=== PATIENT | female | born 1955 | race Caucasian/White ===

== ENCOUNTER 2018-01-16 13:29 | Inpatient (IN) | payer OTHER, SELFPAY ==
[2018-01-16] MEDS ORDERED: Iopamidol 370 76% 100 ML VIAL ONE (13:36)
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
[2018-01-16 14:52] LABS: #Eosinphils 0.1 thou/uL (0.0-0.7); #Lymphocytes 2.1 thou/uL (1.20-3.40); #Monocytes 0.5 thou/uL (0.11-0.59); %Basophils 0.7 % (0.0-1.0); %Lymphocytes 31.6 % (21.0-51.0); %Neutrophils 59.7 % (42.0-75.0); Hemoglobin 14.9 g/dL (12.0-16.0); Mean Corpuscular HGB CONC 34.9 g/dL (32.0-36.0); Mean Corpuscular Hemoglobin 33.8 pg (27.0-31.0); Mean Corpuscular Volume 96.7 fl (81.0-99.0); Mean Platelet Volume 6.9 fL (7.4-10.4); Platelet Count 198 thou/uL (130-400); RBC Distribution Width 11.5 % (11.5-14.5); Red Blood Cell (RBC) Count 4.42 mill/uL (4.20-5.40); White Blood Cell (WBC) Count 6.7 thou/uL (4.8-10.8)
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
[2018-01-16 15:00] LABS: ALT (SGPT) 33 U/L (8-55); AST (SGOT) 42 U/L (5-34); Albumin 4.1 g/dL (3.4-4.8); Alcohol Less than 10 mg/dL (Less than 10); Alkaline Phosphatase 101 U/L (40-150); Anion Gap 11 mmol/L (10-20); BUN (Urea Nitrogen) 28 mg/dL (9.8-20.1); Bilirubin, Total 0.9 mg/dL (0.2-1.2); Calc. Creatinine Clearance 0 mL/min (70-130); Calcium 9.7 mg/dL (7.8-10.44); Carbon Dioxide 22 mmol/L (23-31); Chloride 110 mmol/L (98-107); Estimated GFR-MDRD 77; Globulin 2.5 g/dL (2.4-3.5); Glucose 135 mg/dL (80-115); Protein, Total 6.6 g/dL (6.0-8.3); Sodium 139 mmol/L (136-145)
[2018-01-16 15:03] LABS: CKMB 1.3 ng/mL (0-6.6); Troponin I Less than 0.010 ng/mL (< 0.028)
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
[2018-01-16] MEDS ORDERED: Ondansetron ODT 8 MG TAB ONE (15:21)
[2018-01-16] MEDS ORDERED: Morphine 4 MG/ML VIAL ONE (15:21)
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
[2018-01-16 17:00] LABS: Bilirubin Negative (Negative); Blood, Urine Negative (Negative); Clarity CLEAR (Clear); Glucose, Urine (Dipstick) Negative (Negative); Leukocyte Small (Negative); Nitrite Positive (Negative); Protein, Urine (Dipstick) Negative (Neg-Trace); Urobilinogen 0.2 mg/dL (0.2-1.0)
[2018-01-16 17:01] LABS: Bacteria/HPF 4+ HPF (None Seen); Hyaline Casts/LPF 0-3 HYALINE CAST LPF (0-3 Hyaline); RBC/HPF 0-3 HPF (0-3); Squamous Epithelial 0-3 HPF (0-3)
[2018-01-16 17:06] LABS: Specific Gravity, Urine 1.046 (1.002-1.036)
[2018-01-16 17:13] LABS: Renal Epithelial None Seen HPF (0-3); Transitional Epithelial NONE SEEN HPF (0-3)
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
[2018-01-16] MEDS ORDERED: Dextrose 50% Abboject 50 ML SYRINGE SLOW IVP PRN (18:30)
[2018-01-16] MEDS ORDERED: Ondansetron HCl/PF 4 MG/2 ML Vial IVP PRN (18:30)
[2018-01-16] MEDS ORDERED: Ondansetron ODT 4 MG TAB PO PRN (18:30)
[2018-01-16] MEDS ORDERED: Rib Fracture Protocol IV SCH (18:30)
[2018-01-16] MEDS ORDERED: Dextrose 5% in Water 1,000 ML IV PRN (18:30)
[2018-01-16] MEDS: Famotidine 20 MG TAB PO SCH (20:55)
[2018-01-16] MEDS: Morphine 4 MG/ML VIAL SLOW IVP PRN (20:55)
[2018-01-16] MEDS: Senokot S 8.6-50 MG TAB PO SCH (20:55)
[2018-01-16] MEDS: Acetaminophen 325 MG TAB PO SCH (22:46)
[2018-01-16] MEDS: Cyclobenzaprine 10 MG TAB PO PRN (22:47)
[2018-01-16] MEDS: Ketorolac Tromethamine 30 MG/ML VIAL IVP SCH (22:47)
[2018-01-16] MEDS: Sodium Chloride 0.9% 1,000 ML IV SCH (22:57)
[2018-01-16 23:40] VITALS: BMI 25.2
[2018-01-16] MEDS ORDERED: Acetaminophen 650 MG Suppository PR SCH (23:59)
[2018-01-17] MEDS: Morphine 4 MG/ML VIAL SLOW IVP PRN ×2 (00:27→04:59)
[2018-01-17] MEDS: Acetaminophen 325 MG TAB PO SCH ×4 (04:59→23:26)
[2018-01-17] MEDS: Ketorolac Tromethamine 30 MG/ML VIAL IVP SCH ×4 (04:59→23:26)
[2018-01-17 06:22] LABS: Anion Gap 11 mmol/L (10-20); BUN (Urea Nitrogen) 22 mg/dL (9.8-20.1); Calc. Creatinine Clearance 99 mL/min (70-130); Calcium 8.2 mg/dL (7.8-10.44); Carbon Dioxide 24 mmol/L (23-31); Chloride 107 mmol/L (98-107); Estimated GFR-MDRD 90; Glucose 107 mg/dL (80-115); Potassium 4.1 mmol/L (3.5-5.1); Sodium 138 mmol/L (136-145)
[2018-01-17 06:25] LABS: #Eosinphils 0.1 thou/uL (0.0-0.7); #Lymphocytes 1.9 thou/uL (1.20-3.40); #Monocytes 0.8 thou/uL (0.11-0.59); #Neutrophils 5.6 thou/uL (1.40-6.50); %Basophils 0.4 % (0.0-1.0); %Eosinophils 1.2 % (0.0-10.0); %Lymphocytes 22.6 % (21.0-51.0); %Monocytes 9.1 % (0.0-10.0); %Neutrophils 66.8 % (42.0-75.0); Mean Corpuscular HGB CONC 33.4 g/dL (32.0-36.0); Mean Corpuscular Hemoglobin 32.9 pg (27.0-31.0); Mean Corpuscular Volume 98.4 fl (81.0-99.0); Platelet Count 151 thou/uL (130-400); RBC Distribution Width 11.6 % (11.5-14.5); Red Blood Cell (RBC) Count 3.36 mill/uL (4.20-5.40); White Blood Cell (WBC) Count 8.4 thou/uL (4.8-10.8)
[2018-01-17] MEDS: Famotidine 20 MG TAB PO SCH ×2 (09:52→20:16)
[2018-01-17] MEDS: Polyethylene Glycol 3350 17 GM Packet PO SCH (09:52)
[2018-01-17] MEDS: Senokot S 8.6-50 MG TAB PO SCH ×2 (09:52→20:16)
--- NOTE | 2018-01-17 11:26 | RAD ---
AP VIEW OF CHEST: Date: 01/17/18 INDICATION: Follow-up exam. COMPARISON: Prior exam dated 01/16/18. FINDINGS: There is subsegmental atelectasis seen within the region of the lingula. No pneumothorax is demonstra rogelio. Patient's noted rib fractures are not as well detailed as on the CT examination performed leeanne muñoz on 01/16/18. Mild cardiomegaly persists. Vascular calcifications are similar. IMPRESSION: 1. No pneumothorax. 2. Mild subsegmental atelectasis within the lingula. 3. Known rib fractures are not as well seen as on the recent CT exam. POS: [facility]
[2018-01-17] MEDS: Sodium Chloride 0.9% 1,000 ML IV SCH ×2 (11:27→20:15)
[2018-01-17] MEDS ORDERED: CEFAZOLIN/Water 2 GM/20 ML SYRINGE SLOW IVP SCH (12:00)
[2018-01-17] MEDS ORDERED: CEFAZOLIN/Water 2 GM/20 ML SYRINGE ONE (12:31)
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
[2018-01-17] MEDS ORDERED: Lidocaine 1% PF 5 ML VIAL ONE (15:14)
[2018-01-17] MEDS ORDERED: Ondansetron HCl/PF 4 MG/2 ML Vial ONE (15:14)
[2018-01-17] MEDS ORDERED: Metoclopramide HCl 10 MG/2 ML VIAL ONE (15:14)
[2018-01-17] MEDS ORDERED: PHENYLEPHRINE-NS 100 MCG/ML 10 ML SYRINGE ONE (15:14)
[2018-01-17] MEDS ORDERED: Dexamethasone 20 MG/5 ML VIAL ONE (15:14)
[2018-01-17] MEDS ORDERED: PROPOFOL 200 MG/20 ML VIAL ONE (15:14)
[2018-01-17] MEDS ORDERED: Fentanyl 100 MCG/2 ML VIAL ONE ×2 (15:50→16:55)
[2018-01-17] MEDS ORDERED: Promethazine HCl 25 MG/ML VIAL IM PRN (17:58)
[2018-01-17] MEDS ORDERED: Promethazine HCl 25 MG/ML VIAL SLOW IVP PRN (17:58)
[2018-01-17] MEDS ORDERED: Ondansetron HCl/PF 4 MG/2 ML Vial IVP PRN (17:58)
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
--- NOTE | 2018-01-17 19:48 | RAD ---
TWO VIEWS OF THE RIGHT FEMUR 01/17/18 COMPARISON: 01/16/18 HISTORY: Right femur fracture. FINDINGS/IMPRESSION: Multiple limited intraoperative fluoroscopic views of the right femur were submitted for interpretati on. The patient is status post retrograde intramedullary lelia fixation of the distal femur fracture. N o perihardware lucency is seen. POS: [facility]
[2018-01-17] MEDS: CEFAZOLIN/Water 2 GM/20 ML SYRINGE SLOW IVP SCH (20:15)
[2018-01-17] MEDS: Cyclobenzaprine 10 MG TAB PO PRN (20:15)
[2018-01-18] MEDS: CEFAZOLIN/Water 2 GM/20 ML SYRINGE SLOW IVP SCH (05:00)
[2018-01-18] MEDS: Ketorolac Tromethamine 30 MG/ML VIAL IVP SCH (05:00)
[2018-01-18] MEDS: Acetaminophen 325 MG TAB PO SCH (05:04)
[2018-01-18] MEDS ORDERED: traMADol HCl 50 MG TAB PO PRN (08:34)
[2018-01-18] MEDS: Sulfameth/Trimethoprim DS 800-160mg TAB PO SCH ×2 (09:54→19:56)
[2018-01-18] MEDS: traMADol HCl 50 MG TAB PO SCH ×3 (09:54→19:56)
[2018-01-18] MEDS: Ibuprofen 600 MG TAB PO SCH ×2 (09:54→16:36)
[2018-01-18] MEDS: Polyethylene Glycol 3350 17 GM Packet PO SCH (09:54)
[2018-01-18] MEDS: Senokot S 8.6-50 MG TAB PO SCH ×2 (09:54→19:55)
[2018-01-18] MEDS: Enoxaparin Sodium 40 MG/0.4 ML SYRINGE SC SCH (09:55)
[2018-01-18] MEDS: Famotidine 20 MG TAB PO SCH ×2 (09:55→19:56)
[2018-01-18] MEDS: Acetaminophen 500 MG TAB PO SCH ×4 (10:01→19:55)
[2018-01-18] MEDS ORDERED: Sodium Chloride 0.9% 500 ML IV SCH ×2 (14:15→16:15)
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
[2018-01-18 16:38] LABS: #Eosinphils 0.1 thou/uL (0.0-0.7); #Monocytes 0.7 thou/uL (0.11-0.59); #Neutrophils 5.5 thou/uL (1.40-6.50); %Basophils 0.3 % (0.0-1.0); %Lymphocytes 24.2 % (21.0-51.0); %Monocytes 8.2 % (0.0-10.0); %Neutrophils 66.4 % (42.0-75.0); Mean Corpuscular HGB CONC 33.4 g/dL (32.0-36.0); Mean Corpuscular Hemoglobin 33.2 pg (27.0-31.0); Mean Corpuscular Volume 99.3 fl (81.0-99.0); Mean Platelet Volume 7.3 fL (7.4-10.4); Platelet Count 109 thou/uL (130-400); RBC Distribution Width 11.3 % (11.5-14.5); Red Blood Cell (RBC) Count 2.41 mill/uL (4.20-5.40); White Blood Cell (WBC) Count 8.2 thou/uL (4.8-10.8)
[2018-01-18] MEDS: Sodium Chloride 0.9% 1,000 ML IV SCH (19:26)
[2018-01-19] MEDS: Ibuprofen 600 MG TAB PO SCH ×3 (02:14→19:25)
[2018-01-19] MEDS: Acetaminophen 500 MG TAB PO SCH ×4 (02:44→20:40)
[2018-01-19] MEDS: traMADol HCl 50 MG TAB PO SCH ×4 (02:45→20:40)
[2018-01-19 04:20] LABS: #Basophils 0.1 thou/uL (0.0-0.2); #Eosinphils 0.2 thou/uL (0.0-0.7); #Lymphocytes 2.2 thou/uL (1.20-3.40); #Monocytes 0.7 thou/uL (0.11-0.59); #Neutrophils 3.8 thou/uL (1.40-6.50); %Basophils 0.8 % (0.0-1.0); %Eosinophils 2.7 % (0.0-10.0); %Lymphocytes 32.3 % (21.0-51.0); %Monocytes 9.4 % (0.0-10.0); %Neutrophils 54.8 % (42.0-75.0); Hemoglobin 7.3 g/dL (12.0-16.0); Mean Corpuscular Hemoglobin 33.4 pg (27.0-31.0); Mean Corpuscular Volume 98.4 fl (81.0-99.0); Mean Platelet Volume 7.3 fL (7.4-10.4); Platelet Count 95 thou/uL (130-400); RBC Distribution Width 11.3 % (11.5-14.5); Red Blood Cell (RBC) Count 2.17 mill/uL (4.20-5.40)
[2018-01-19 04:32] LABS: Anion Gap 8 mmol/L (10-20); BUN (Urea Nitrogen) 14 mg/dL (9.8-20.1); Calc. Creatinine Clearance 99 mL/min (70-130); Carbon Dioxide 24 mmol/L (23-31); Chloride 110 mmol/L (98-107); Estimated GFR-MDRD 90; Glucose 97 mg/dL (80-115); Phosphorus 2.6 mg/dL (2.3-4.7); Potassium 3.8 mmol/L (3.5-5.1); Sodium 138 mmol/L (136-145)
[2018-01-19] MEDS: Polyethylene Glycol 3350 17 GM Packet PO SCH (08:51)
[2018-01-19] MEDS: Sulfameth/Trimethoprim DS 800-160mg TAB PO SCH ×2 (08:51→20:39)
[2018-01-19] MEDS: Famotidine 20 MG TAB PO SCH ×2 (08:51→20:39)
[2018-01-19] MEDS: Enoxaparin Sodium 40 MG/0.4 ML SYRINGE SC SCH ×2 (08:52→09:07)
[2018-01-19] MEDS: Senokot S 8.6-50 MG TAB PO SCH ×2 (08:55→20:39)
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
[2018-01-19] MEDS: Ferrous Sulfate 325 MG TAB PO SCH (19:25)
[2018-01-19] MEDS: Ascorbic Acid 500 mg Chewable Tablet PO SCH (20:39)
[2018-01-20] MEDS: Ibuprofen 600 MG TAB PO SCH ×3 (00:04→16:01)
[2018-01-20] MEDS: Acetaminophen 500 MG TAB PO SCH ×4 (02:00→21:33)
[2018-01-20] MEDS: traMADol HCl 50 MG TAB PO SCH ×4 (02:00→21:35)
[2018-01-20 04:15] LABS: #Basophils 0.1 thou/uL (0.0-0.2); #Eosinphils 0.3 thou/uL (0.0-0.7); #Lymphocytes 2.3 thou/uL (1.20-3.40); #Monocytes 0.7 thou/uL (0.11-0.59); #Neutrophils 5.4 thou/uL (1.40-6.50); %Basophils 0.6 % (0.0-1.0); %Eosinophils 3.3 % (0.0-10.0); %Lymphocytes 26.2 % (21.0-51.0); %Monocytes 7.9 % (0.0-10.0); Hemoglobin 8.2 g/dL (12.0-16.0); Mean Corpuscular HGB CONC 34.3 g/dL (32.0-36.0); Mean Corpuscular Hemoglobin 33.4 pg (27.0-31.0); Mean Corpuscular Volume 97.1 fl (81.0-99.0); Mean Platelet Volume 7.5 fL (7.4-10.4); Platelet Count 131 thou/uL (130-400); RBC Distribution Width 12.2 % (11.5-14.5); Red Blood Cell (RBC) Count 2.46 mill/uL (4.20-5.40); White Blood Cell (WBC) Count 8.7 thou/uL (4.8-10.8)
[2018-01-20] MEDS: Ferrous Sulfate 325 MG TAB PO SCH ×2 (08:59→16:00)
[2018-01-20] MEDS: Ascorbic Acid 500 mg Chewable Tablet PO SCH ×2 (09:00→21:33)
[2018-01-20] MEDS: Enoxaparin Sodium 40 MG/0.4 ML SYRINGE SC SCH (09:00)
[2018-01-20] MEDS: Famotidine 20 MG TAB PO SCH ×2 (09:01→21:34)
[2018-01-20] MEDS: Sulfameth/Trimethoprim DS 800-160mg TAB PO SCH ×2 (09:01→21:34)
[2018-01-20] MEDS: Senokot S 8.6-50 MG TAB PO SCH ×2 (09:01→21:34)
[2018-01-20] MEDS: Polyethylene Glycol 3350 17 GM Packet PO SCH (09:01)
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
[2018-01-21] MEDS: Ibuprofen 600 MG TAB PO SCH ×4 (00:37→17:28)
[2018-01-21] MEDS: Acetaminophen 500 MG TAB PO SCH ×4 (04:03→20:37)
[2018-01-21] MEDS: traMADol HCl 50 MG TAB PO SCH ×3 (04:03→15:30)
[2018-01-21] MEDS: Ascorbic Acid 500 mg Chewable Tablet PO SCH ×2 (08:18→20:36)
[2018-01-21] MEDS: Senokot S 8.6-50 MG TAB PO SCH ×2 (08:18→20:37)
[2018-01-21] MEDS: Ferrous Sulfate 325 MG TAB PO SCH ×2 (08:18→17:27)
[2018-01-21] MEDS: Polyethylene Glycol 3350 17 GM Packet PO SCH (08:18)
[2018-01-21] MEDS: Famotidine 20 MG TAB PO SCH ×2 (08:19→20:36)
[2018-01-21] MEDS: Sulfameth/Trimethoprim DS 800-160mg TAB PO SCH (08:19)
[2018-01-21] MEDS: Enoxaparin Sodium 40 MG/0.4 ML SYRINGE SC SCH (08:29)
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
[2018-01-21] MEDS ORDERED: traMADol HCl 50 MG TAB PO PRN ×2 (18:01→18:02)
[2018-01-22] MEDS: Acetaminophen 500 MG TAB PO SCH ×4 (03:08→20:29)
[2018-01-22] MEDS: Ibuprofen 600 MG TAB PO SCH ×3 (03:08→18:51)
[2018-01-22] MEDS: Famotidine 20 MG TAB PO SCH ×2 (08:22→20:29)
[2018-01-22] MEDS: Ferrous Sulfate 325 MG TAB PO SCH ×2 (08:22→18:51)
[2018-01-22] MEDS: Ascorbic Acid 500 mg Chewable Tablet PO SCH ×2 (08:22→20:29)
[2018-01-22] MEDS: Senokot S 8.6-50 MG TAB PO SCH ×2 (08:22→21:58)
[2018-01-22] MEDS: Enoxaparin Sodium 40 MG/0.4 ML SYRINGE SC SCH (08:25)
[2018-01-22 08:54] LABS: #Eosinphils 0.1 thou/uL (0.0-0.7); #Lymphocytes 1.3 thou/uL (1.20-3.40); #Monocytes 0.5 thou/uL (0.11-0.59); %Basophils 0.4 % (0.0-1.0); %Eosinophils 1.7 % (0.0-10.0); %Lymphocytes 18.5 % (21.0-51.0); %Monocytes 6.8 % (0.0-10.0); %Neutrophils 72.5 % (42.0-75.0); Hemoglobin 8.7 g/dL (12.0-16.0); Mean Corpuscular Hemoglobin 33.2 pg (27.0-31.0); Mean Corpuscular Volume 97.6 fl (81.0-99.0); Mean Platelet Volume 6.6 fL (7.4-10.4); Platelet Count 210 thou/uL (130-400); RBC Distribution Width 12.5 % (11.5-14.5); Red Blood Cell (RBC) Count 2.61 mill/uL (4.20-5.40)
[2018-01-22 09:16] LABS: Anion Gap 11 mmol/L (10-20); BUN (Urea Nitrogen) 11 mg/dL (9.8-20.1); Calc. Creatinine Clearance 107 mL/min (70-130); Carbon Dioxide 23 mmol/L (23-31); Chloride 107 mmol/L (98-107); Estimated GFR-MDRD Greater than 90; Glucose 134 mg/dL (80-115); Magnesium 1.8 mg/dL (1.6-2.6); Potassium 4.1 mmol/L (3.5-5.1); Sodium 137 mmol/L (136-145)
[2018-01-22] MEDS ORDERED: Magnesium 2 GM/NS 0.9% 100 ML 2 GM in Premix Bag 1 BAG IVPB SCH (09:45)
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
[2018-01-22] MEDS ORDERED: Polyethylene Glycol 3350 17 GM Packet PO SCH (21:00)
[2018-01-23] MEDS: Acetaminophen 500 MG TAB PO SCH ×3 (02:41→14:34)
[2018-01-23] MEDS: Ibuprofen 600 MG TAB PO SCH ×2 (02:41→09:29)
[2018-01-23 07:41] LABS: #Eosinphils 0.2 thou/uL (0.0-0.7); #Monocytes 0.6 thou/uL (0.11-0.59); #Neutrophils 4.3 thou/uL (1.40-6.50); %Basophils 0.4 % (0.0-1.0); %Eosinophils 2.4 % (0.0-10.0); %Monocytes 7.8 % (0.0-10.0); %Neutrophils 60.5 % (42.0-75.0); Hemoglobin 8.9 g/dL (12.0-16.0); Mean Corpuscular HGB CONC 33.8 g/dL (32.0-36.0); Mean Corpuscular Volume 97.7 fl (81.0-99.0); Mean Platelet Volume 6.3 fL (7.4-10.4); Platelet Count 222 thou/uL (130-400); RBC Distribution Width 12.8 % (11.5-14.5); Red Blood Cell (RBC) Count 2.68 mill/uL (4.20-5.40)
[2018-01-23] MEDS ORDERED: traMADol HCl 50 MG TAB PO PRN (08:48)
[2018-01-23] MEDS: Famotidine 20 MG TAB PO SCH (09:28)
[2018-01-23] MEDS: Senokot S 8.6-50 MG TAB PO SCH (09:28)
[2018-01-23] MEDS: Enoxaparin Sodium 40 MG/0.4 ML SYRINGE SC SCH (09:28)
[2018-01-23] MEDS: Ascorbic Acid 500 mg Chewable Tablet PO SCH (09:29)
[2018-01-23] MEDS: Ferrous Sulfate 325 MG TAB PO SCH (09:29)
[2018-01-23] MEDS: traMADol HCl 50 MG TAB PO SCH ×2 (09:31→14:34)
[2018-01-23 09:32] LABS: Anion Gap 13 mmol/L (10-20); BUN (Urea Nitrogen) 15 mg/dL (9.8-20.1); Calc. Creatinine Clearance 104 mL/min (70-130); Calcium 9.1 mg/dL (7.8-10.44); Carbon Dioxide 22 mmol/L (23-31); Chloride 108 mmol/L (98-107); Estimated GFR-MDRD Greater than 90; Glucose 151 mg/dL (80-115); Potassium 4.2 mmol/L (3.5-5.1); Sodium 139 mmol/L (136-145)
[2018-01-23] MEDS: Cyclobenzaprine 10 MG TAB PO PRN (09:36)
[2018-01-23 12:23] VITALS: BP 136/68; TEMP 98
--- NOTE | 2018-01-25 14:52 | EKG ---
Test Reason : Blood Pressure : / mmHG Vent. Rate : 077 BPM Atrial Rate : 077 BPM P-R Int : 132 ms QRS Dur : 094 ms QT Int : 382 ms P-R-T Axes : 057 -32 036 degrees QTc Int : 432 ms Normal sinus rhythm Possible Left atrial enlargement Left axis deviation Incomplete right bundle branch block Abnormal ECG Confirmed by CRISTINA EWING, GUME ([id number]), content editor WOCJIECH MTZ ([id number]) on 01/25/2018 2:52:18 PM Referred By: Confirmed By:GUME EVANS MD
== END 2018-01-23 15:00 | disposition home or self-care (01) | DRG 956 ==
LOC: ERS 13:29 → EDBD 13:29 → SURG B 15:10
PROVIDERS: ADMIT Surgery; ATTEND Surgery
PROC: 0QSB06Z Reposition Right Lower Femur with Intramedullary Internal Fixation Device, Open Approach (ICD-10-PCS; principal; 2018-01-17)
DX: S72.401A Unspecified fracture of lower end of right femur, initial encounter for closed fracture (principal); S32.301A Unspecified fracture of right ilium, initial encounter for closed fracture; S22.43XA Multiple fractures of ribs, bilateral, initial encounter for closed fracture; S22.20XA Unspecified fracture of sternum, initial encounter for closed fracture; D62 Acute posthemorrhagic anemia; N39.0 Urinary tract infection, site not specified; V49.49XA Driver injured in collision with other motor vehicles in traffic accident, initial encounter; Y93.89 Activity, other specified; Y92.414 Local residential or business street as the place of occurrence of the external cause; Z72.0 Tobacco use; S80.12XA Contusion of left lower leg, initial encounter; E83.42 Hypomagnesemia; Z79.82 Long term (current) use of aspirin; Z88.5 Allergy status to narcotic agent
CPT/HCPCS: 36415; 36430; 51702; 70450; 71045; 71260; 72125; 74177; 76001; 80048; 80053; 80307; 81003; 81015; 82553; 83735; 84100; 84484; 85025; 86850; 86900; 86901; 93005; 94640; 96374; C1713; C1769; G0390; G8978-GP-CL; G8979-GP-CK; G8987-GO-CK; G8988-GO-CJ; J0131; J1100; J1650; J1885; J2001; J2270; J2405; J2704; J2765; J3010; J3475; J7620; P9016; Q0162

== ENCOUNTER 2018-07-25 10:58 | Day surgery (SDC) | payer MEDICARE, OTHER ==
[2018-07-24 11:09] VITALS: BMI 25.8
[2018-07-25] MEDS ORDERED: Metoclopramide HCl 10 MG/2 ML VIAL ONE (12:02)
[2018-07-25] MEDS ORDERED: PROPOFOL 200 MG/20 ML VIAL ONE (12:02)
[2018-07-25] MEDS ORDERED: Lidocaine 1% PF 5 ML VIAL ONE (12:02)
[2018-07-25] MEDS ORDERED: Ondansetron PF 4 MG/2 ML Vial ONE (12:02)
[2018-07-25] MEDS ORDERED: Dexamethasone 20 MG/5 ML VIAL ONE (12:02)
[2018-07-25] MEDS ORDERED: Ketorolac Tromethamine 30 MG/ML VIAL ONE (12:02)
[2018-07-25] MEDS ORDERED: CEFAZOLIN 2 GM/50 ML BAG ONE (12:52)
[2018-07-25] MEDS ORDERED: Fentanyl 100 MCG/2 ML VIAL ONE ×2 (13:20→14:45)
--- NOTE | 2018-07-25 20:47 | RAD ---
RIGHT FEMUR TWO VIEWS: 07/25/18 HISTORY: Intraoperative films. Hardware removal. These films show the removal of an intramedullary lelia related to the distal femoral fracture. IMPRESSION: Intramedullary lelia removal. POS: [facility]
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
== END 2018-07-25 16:50 | disposition home or self-care (01) ==
LOC: SDC 10:58
PROVIDERS: ATTEND Orthopaedic Surgery
PROC: 0QPB04Z Removal of Internal Fixation Device from Right Lower Femur, Open Approach (ICD-10-PCS; principal; 2018-07-25)
DX: T84.84XA Pain due to internal orthopedic prosthetic devices, implants and grafts, initial encounter (principal); Z90.710 Acquired absence of both cervix and uterus; Z88.5 Allergy status to narcotic agent; Z79.82 Long term (current) use of aspirin; Z79.899 Other long term (current) drug therapy; Z98.890 Other specified postprocedural states
CPT/HCPCS: 76001; J1100; J1885; J2001; J2405; J2704; J2765; J3010

== ENCOUNTER 2018-08-26 09:03 | Outpatient (CLI) | payer MEDICARE ==
--- NOTE | 2018-08-26 11:13 | BD ---
DEXA BONE DENSITY EXAM: HISTORY: This is a 63-year-old postmenopausal female for screening. COMPARISON: None. FINDINGS: Lumbar Spine: BMD (g/cm2) L1 0.673 T-Score: -2.9 L2 0.715 T-Score: -2.8 L3 0.751 T-Score: -3.0 L4 0.617 T-Score: -4.0 L1-L4 0.688 T-Score: -3.3 Femoral Neck: 0.407 T-Score: -4.0 Total Femur: 0.508 T-Score: -3.6 Impression: Osteoporosis. The patient has approximately a 10 times increased risk of fracture when compared with young patients with normal bone mineral density. POS: [facility]
== END 2018-08-26 09:04 | disposition home or self-care (01) ==
LOC: BICMAMMO 09:03
PROVIDERS: ATTEND Physician Assistant Surgical
DX: N95.1 Menopausal and female climacteric states (principal); S72.361D Displaced segmental fracture of shaft of right femur, subsequent encounter for closed fracture with routine healing; M81.0 Age-related osteoporosis without current pathological fracture
CPT/HCPCS: 77080

== ENCOUNTER 2019-07-04 09:03 | Outpatient (CLI) | payer MEDICARE ==
--- NOTE | 2019-07-15 17:26 | MMO ---
Bilateral MAMMO Bilat Screen [facility]. CLINICAL HISTORY: Patient is 64 years old and is seen for screening. The patient has no family history of breast cancer. The patient has no personal history of cancer. The patient has a history of bilateral Excisional Biopsy more than 10 years ago - benign. VIEWS: The views performed were: bilateral craniocaudal with tomosynthesis and bilateral mediolateral oblique with tomosynthesis. FILMS COMPARED: The present examination has been compared to prior imaging studies performed at This study has been interpreted with the assistance of computer-aided detection. MAMMOGRAM FINDINGS: There are scattered fibroglandular densities. There are no suspicious masses, suspicious calcifications, or new areas of architectural distortion. IMPRESSION: THERE IS NO MAMMOGRAPHIC EVIDENCE OF MALIGNANCY. A ROUTINE FOLLOW-UP MAMMOGRAM IN 1 YEAR IS RECOMMENDED. THE RESULTS OF THIS EXAM WERE SENT TO THE PATIENT. ACR BI-RADS Category 1 - Negative MAMMOGRAPHY NOTE: 1. A negative mammogram report should not delay a biopsy if a dominant of clinically suspicious mass is present. 2. Approximately 10% to 15% of breast cancers are not detected by mammography. 3. Adenosis and dense breasts may obscure an underlying neoplasm. Reported by: JERRICA ACUNA MD Electonically Signed: [id number]
== END 2019-07-04 09:04 | disposition home or self-care (01) ==
LOC: BICMAMMO 09:03
PROVIDERS: ATTEND Family Medicine
DX: Z12.31 Encounter for screening mammogram for malignant neoplasm of breast (principal); Z91.89 Other specified personal risk factors, not elsewhere classified
CPT/HCPCS: 77063; 77067

== ENCOUNTER 2019-09-01 09:15 | Outpatient (CLI) | payer MEDICARE ==
--- NOTE | 2019-09-01 10:53 | BD ---
BONE DENSITOMETRY USING DEXA: Date: 09/01/2019 HISTORY: Osteoporosis. FINDINGS: Lumbar Spine: BMD (g/cm2) L1 0.736 T-Score: -2.3 Z-Score: -0.7 L2 0.823 T-Score: -1.9 Z-Score: 0.0 L3 0.923 T-Score: -1.5 Z-Score: 0.5 L4 0.708 T-Score: -3.2 Z-Score: -1.2 L1-L4 0.799 T-Score: -2.3 Z-Score: -0.4 Femoral Neck: 0.410 T-Score: -4.0 Z-Score: -2/4 Total Femur: 0.538 T-Score: -3.3 Z-Score: -2.0 There has been interval improvement of 16.1% in the bone mineral density of the lumbar spine and an i mprovement of 5.9% in the bone mineral density of the proximal femur since 08/26/2018. IMPRESSION: Osteoporosis. POS: [facility]
== END 2019-09-01 09:16 | disposition home or self-care (01) ==
LOC: BICMAMMO 09:15
PROVIDERS: ATTEND Family Medicine
DX: M81.0 Age-related osteoporosis without current pathological fracture (principal)
CPT/HCPCS: 77080

== ENCOUNTER 2019-10-27 10:33 | Outpatient (CLI) | payer MEDICARE ==
--- NOTE | 2019-10-27 11:32 | RAD ---
RIGHT KNEE 2 VIEWS: Date: 10/27/2019 HISTORY: Right knee pain. FINDINGS/IMPRESSION: There is remodeling of the distal femur due to healed fracture. There are degenerative changes. No ac [place] fracture, dislocation, or bony destruction seen. POS: [facility]
--- NOTE | 2019-10-27 11:34 | RAD ---
LEFT KNEE 2 VIEWS: Date: 10/27/2019 HISTORY: Left knee pain. FINDINGS/IMPRESSION: Degenerative changes are seen, most prominent in the medial tibiofemoral compartment. No fracture, di slocation, or bony destruction identified. POS: [facility]
--- NOTE | 2019-10-28 07:37 | RAD ---
RIGHT KNEE 2 VIEWS: Date: 10/27/2019 HISTORY: right knee pain. FINDINGS/IMPRESSION: There is deformity due to an old healed fracture of the shaft of the right femur. Degenerative change s are seen in the right knee. No acute fracture, dislocation, or bony destruction identified. POS: [facility]
== END 2019-10-27 10:34 | disposition home or self-care (01) ==
LOC: BICRAD 10:33
PROVIDERS: ATTEND Family Medicine
DX: G89.29 Other chronic pain (principal); M17.0 Bilateral primary osteoarthritis of knee; S72.301S Unspecified fracture of shaft of right femur, sequela; R06.02 Shortness of breath
CPT/HCPCS: 85025

== ENCOUNTER 2020-11-24 13:20 | Outpatient (CLI) | payer MEDICARE | END 2020-11-24 13:21 | disposition home or self-care (01) | LOC: BICRAD 13:20 | PROVIDERS: ATTEND Family Medicine | DX: R06.02 Shortness of breath (principal) | CPT/HCPCS: 71046 ==

== ENCOUNTER 2021-05-11 07:46 | Outpatient (CLI) | payer MEDICARE | END 2021-05-11 07:47 | disposition home or self-care (01) | LOC: BICMAMMO 07:46 | PROVIDERS: ATTEND Family Medicine | DX: M81.0 Age-related osteoporosis without current pathological fracture (principal) | CPT/HCPCS: 77080 ==

== ENCOUNTER 2024-02-04 13:10 | Outpatient (CLI) | payer MEDICARE | END 2024-02-04 13:11 | disposition home or self-care (01) | LOC: BICMAMMO 13:10 | PROVIDERS: ATTEND Family Medicine | DX: Z12.31 Encounter for screening mammogram for malignant neoplasm of breast (principal); M81.0 Age-related osteoporosis without current pathological fracture; M85.88 Other specified disorders of bone density and structure, other site; Z91.89 Other specified personal risk factors, not elsewhere classified | CPT/HCPCS: 77063; 77067; 77080 ==

== ENCOUNTER 2024-07-10 12:41 | Outpatient (CLI) | payer MEDICARE | END 2024-07-10 12:42 | disposition home or self-care (01) | LOC: BICRAD 12:41 | PROVIDERS: ATTEND Internal Medicine | DX: R07.82 Intercostal pain (principal) | CPT/HCPCS: 71046 ==

== ENCOUNTER 2025-06-08 12:12 | Emergency (ER) | payer MEDICARE ==
[~2025-06-08 12:12] MED LIST: Iopamidol-370 76% 500 ML MDV (1 ML CHARGE) ONE
[2025-06-08 13:31] LABS: Bacteria/HPF 4+ HPF (None Seen); CAUTI Indications for Culture Pelvic or flank pain; Glucose, Urine (Dipstick) Normal (Negative); Leukocyte 250 Leu/uL (Negative); Protein, Urine (Dipstick) Negative (Neg-Trace); RBC/HPF 0-3 HPF (0-3); Specific Gravity, Urine 1.022 (1.002-1.036); WBC/HPF 21-50 HPF (0-3)
[2025-06-08 13:34] LABS: Urine Culture Reflex Yes Yes
[2025-06-08 14:25] LABS: #Basophils 0.04 10x3/uL (0.0-0.2); #Eosinophils 0.09 10x3/uL (0.0-0.7); #Monocytes 0.62 10x3/uL (0.11-0.59); #Neutrophils 5.84 10x3/uL (1.40-6.50); %Basophils 0.5 % (0.0-1.0); %Eosinophils 1.1 % (0.0-10.0); %Lymphocytes 22.5 % (21.0-51.0); %Monocytes 7.3 % (0.0-10.0); %Neutrophils 68.2 % (42.0-75.0); Hematocrit 49.0 % (36.0-47.0); Hemoglobin 16.3 g/dL (12.0-16.0); Mean Corpuscular Hemoglobin 30.8 pg (27.0-31.0); Mean Corpuscular Volume 92.5 fL (78.0-98.0); Platelet Count 225 10x3/uL (130-400); Red Blood Cell (RBC) Count 5.30 mill/uL (4.20-5.40); White Blood Cell (WBC) Count 8.54 10x3/uL (4.8-10.8)
[2025-06-08 14:46] LABS: ALT (SGPT) 26 U/L (Less than 34); AST (SGOT) 34 U/L (11-34); Albumin 4.4 g/dL (3.1-4.5); Alkaline Phosphatase 101 U/L (40-110); Anion Gap 10 mmol/L (10-20); BUN (Urea Nitrogen) 16 mg/dL (9.8-20.1); Bilirubin, Total 0.7 mg/dL (0.3-1.2); Calc. Creatinine Clearance 0 mL/min (70-130); Calcium 10.0 mg/dL (7.8-10.44); Carbon Dioxide 21 mmol/L (23-31); Chloride 109 mmol/L (98-107); Globulin 3.4 g/dL (2.4-3.5); Glucose 104 mg/dL (83-110); Lipase 32 U/L (8-78); Potassium 4.1 mmol/L (3.5-5.1); Sodium 136 mmol/L (136-145)
[2025-06-08] MEDS ORDERED: cefTRIAXone (ROCEPHIN) 1 GM VIAL ONE (15:00)
[2025-06-08] MEDS ORDERED: Ketorolac Tromethamine 30 MG (1 mL) VIAL ONE (15:00)
[2025-06-08] MEDS ORDERED: Acetaminophen 500 MG TAB ONE (15:00)
== END 2025-06-08 17:00 | disposition home or self-care (01) ==
LOC: ERS 12:12
DX: N39.0 Urinary tract infection, site not specified (principal); I10 Essential (primary) hypertension; I25.2 Old myocardial infarction
CPT/HCPCS: 74177; 80053; 81001; 83690; 84484; 85025; 87086; 93005; J0696; J1885; 87077; 87186; 96374; 96375; Q9967

== ENCOUNTER 2025-06-09 09:14 | Outpatient (CLI) | payer MEDICARE | END 2025-06-09 09:15 | disposition home or self-care (01) | LOC: BICMAMMO 09:14 | PROVIDERS: ATTEND Family Medicine | DX: Z12.31 Encounter for screening mammogram for malignant neoplasm of breast (principal); Z91.89 Other specified personal risk factors, not elsewhere classified | CPT/HCPCS: 77063; 77067 ==